=== PATIENT | male | born 1990 | race Hispanic/Latino ===

== ENCOUNTER 2016-04-13 12:02 | Emergency (ER) | payer SELFPAY ==
[2016-04-13] MEDS ORDERED: Lidocaine 2% PF 100 mg/5 ml Syringe ONE (13:06)
[2016-04-13] MEDS ORDERED: cefTRIAXone\\ROCEPHIN 1 GM VIAL ONE (13:06)
[2016-04-13] MEDS ORDERED: Sterile Water 0 ML ONE ×2 (13:09→13:10)
[2016-04-13] MEDS ORDERED: Lidocaine 1% 20 ML MDV ONE (13:11)
== END 2016-04-13 13:41 | disposition home or self-care (01) ==
LOC: NAV ERS 12:02
DX: L03.113 Cellulitis of right upper limb (principal)
CPT/HCPCS: 96372; J0696; J2001